=== PATIENT | female | born 1950 | race Caucasian/White ===

== ENCOUNTER → 2018-03-24 | Outpatient (CLI) | payer OTHER ==
[~2018-03-24] MED LIST: AMLO10TA2 PO; ASPI-516 CHEW; BENA20TA3 PO; IOHEXOL 350 MG/ML 10 ML VIAL (for RAD DIAG) IVCONTRAST ONE; LIPI20TA PO; PROP40TA3 PO; PROZ20CA11 PO
--- NOTE | 2018-03-24 14:20 | RADRPT ---
EXAM DATE: 03/24/2018 11:07 AM EDT AGE/SEX: 67 years / Female INDICATIONS: PREOP TAVR CLINICAL DATA: This is the patient's initial encounter. Patient reports that signs and symptoms have been present for 1 day and indicates a pain score of 0/10. MEDICAL/SURGICAL HISTORY: Cardiovascular disease. . RADIATION DOSE: 9.45 CTDI (mGy) COMPARISON: . TECHNIQUE: Volumetric scanning was performed using a multi-row detector CT scanner during bolus infu so of 97 ml Omnipaque 350 (iohexol) nonionic water-soluble contrast as a single exam dose. The da ta was post processed with a variety of visualization algorithms including full volume maximum intens ity projection, multi-planar sliding thin slab reformation, curved planar reformation, and surface re ndering techniques. Using automated exposure control and adjustment of the mA and/or kV according to patient size, radiation dose was kept as low as reasonably achievable to obtain optimal diagnostic q uality images. FINDINGS: CARDIAC: The coronary system is co- dominant. Normal vessels without calcification or stenosis. Th ere are no microcalcifications. There is no pericardial effusion AORTIC ROOT/VALVE: 3 cusps are evident with significant calcifications. The aortic root measures 3.4 cm. Mid thoracic aorta measures 3.5 cm with no calcifications. THORACIC AORTA: The thoracic aortic root is normal with normal branching of the great vessels. Ther e is no evidence of aneurysm or dissection. ABDOMINAL AORTA: The aorta is normal in caliber without aneurysm or dissection. The renal arteries are patent bilaterally. The proximal celiac and superior mesenteric arteries are patent and normal i n diameter. CELIAC ARTERY: Celiac artery origin is calcified with 20-30% stenosis of its origin.. SMA: Superior mesenteric artery origin is calcified but widely patent. RIGHT RENAL ARTERY: 2 equal sized renal arteries supply the right kidney. Both are patent. Both marc e from the aorta directly adjacent to one another.. LEFT RENAL ARTERY: There is a main left renal artery with small caliber accessory renal artery. Both are patent.. RIGHT COMMON ILIAC: No evidence of aneurysm, mural thrombus, dissection, or stenosis. Eccentric ca lcified plaque is noted. The common femoral measures 7 mm . LEFT COMMON ILIAC: Calcified plaque generates a 50% stenosis of the origin of the left common iliac a rtery. No mural thrombus, dissection, or aneurysm. At the stenotic segment and measures [address] THORAX: The heart is at the upper limits of normal in terms of size. No pericardial effusion. Pulmon agustina arteries are normal in caliber. No adenopathy. No infiltrate or effusion. ABDOMEN: 2 small cysts are seen involving the right lobe of the liver. The other intra-abdominal vis ceral structures are unremarkable. PELVIS: Unremarkable. CONCLUSION: 1. Calcified tricuspid aortic valve. 2. Hemodynamically significant stenosis involving the left common iliac artery origin. Electronically signed by: Dean Hawkins MD 03/24/2018 2:18 PM EDT
== END ==
LOC: HRAD 08:51
PROVIDERS: ATTEND Thoracic Surgery (Cardiothoracic Vascular Surgery)
DX: I35.0 Nonrheumatic aortic (valve) stenosis (principal); I50.33 Acute on chronic diastolic (congestive) heart failure; R01.1 Cardiac murmur, unspecified
CPT/HCPCS: 74174; Q9967

== ENCOUNTER 2018-03-28 05:41 | Inpatient (IN) | payer OTHER, MEDICARE ==
[2018-03-28] VITALS (11 sets, daily range): BP systolic 108–148; BP diastolic 40–70; PULSE 47–87; RESP 10–17; TEMP 97.8–98.6; O2SAT 92–99
[~2018-03-28] VITALS: Ht 160 cm; Wt 66.0 kg
[~2018-03-28 05:41] MED LIST changes: -AMLO10TA2 PO; -ASPI-516 CHEW; -BENA20TA3 PO; -LIPI20TA PO; -PROP40TA3 PO; -PROZ20CA11 PO
[2018-03-28] MEDS ORDERED: ASPI-516 CHEW (06:27)
[2018-03-28] MEDS ORDERED: AMLO10TA2 PO (06:27)
[2018-03-28] MEDS ORDERED: LIPI20TA PO (06:27)
[2018-03-28] MEDS ORDERED: PROZ20CA11 PO (06:27)
[2018-03-28] MEDS ORDERED: PROP40TA3 PO (06:27)
[2018-03-28] MEDS ORDERED: BENA20TA3 PO (06:27)
[2018-03-28] MEDS ORDERED: LACTATED RINGER'S 1000 ML IV PRN (06:30)
[2018-03-28] MEDS ORDERED: CHLORHEXIDINE GLUCONATE 2 % 1 PACK (2 CLOTHS) TOPICAL PRN (06:30)
[2018-03-28] MEDS ORDERED: SODIUM CHLORID 0.9% 500 ML IV PRN (06:30)
[2018-03-28] MEDS ORDERED: METOPROLOL TARTRATE 25 MG TAB PO PRN (06:30)
[2018-03-28] MEDS ORDERED: INSULIN HUMAN REGULAR 1,000 UNITS/10 ML VIAL SQ PRN (06:30)
[2018-03-28] MEDS ORDERED: POVIDONE IODINE 5% (ANTISEPSIS KIT) 4 APPLICATIONS EACH NARE PRN (06:30)
[2018-03-28] MEDS ORDERED: HEPARIN SODIUM - SQ 10,000 UNITS/ML VIAL ONE (06:34)
[2018-03-28] MEDS ORDERED: methylPREDNISolone SOD SUCC 125 MG/2 ML VIAL ONE (06:34)
[2018-03-28] MEDS ORDERED: VANCOMYCIN HCL 1000 MG VIAL ONE (06:34)
[2018-03-28] MEDS ORDERED: CUSTODIOL HTK IRR SOLN 2,000 ML ONE (06:59)
[2018-03-28] MEDS ORDERED: SODIUM BICARBONATE 8.4% INJ 50 MEQ/50 ML SYR ONE (07:00)
[2018-03-28] MEDS ORDERED: MANNITOL INJ 100 ML ONE (07:00)
[2018-03-28] MEDS ORDERED: ALBUMIN 25% INJ 50 ML IV ONE (07:00)
[2018-03-28] MEDS ORDERED: HEPARIN SODIUM - IV 10,000 UNITS/10 ML VIAL ONE (07:01)
[2018-03-28] MEDS ORDERED: ceFAZolin 2 GM PREMIX 50 ML ONE (07:10)
[2018-03-28] MEDS ORDERED: INSULIN REGULAR 100 UNITS in NS 100 ML IV PRN (08:00)
[2018-03-28] MEDS ORDERED: CEFAZOLIN 500 MG in NS IRR BTL 500 ML IRRIGATION SCH (08:30)
[2018-03-28] MEDS ORDERED: METOPROLOL TARTRATE 25 MG TAB PO SCH (08:30)
[2018-03-28] MEDS ORDERED: DEXTROSE 50% IN WATER 50 ML VIAL(D50) IV PUSH PRN ×2 (08:30→12:45)
[2018-03-28] MEDS ORDERED: SODIUM CHLORIDE 0.9% FLUSH 10 ML FLUSH IV FLUSH PRN ×3 (08:30→12:45)
[2018-03-28] MEDS ORDERED: ceFAZolin 2 GM PREMIX 50 ML IV SCH (08:30)
[2018-03-28] MEDS: BUPIVACAINE LIPOSO PF 1.3% INJ 20 ML, DEXAMETHASONE INJ 4 MG, MORPHINE INJ 8 MG in SODI... IRRIGATION SCH ×2 (09:43→12:43)
[2018-03-28] MEDS ORDERED: ePHEDrine/NS 25 MG/5 ML SYRINGE IV ONE (12:00)
[2018-03-28] MEDS ORDERED: LACTATED RINGER'S 1000 ML INJ 1,000 ML IV ONE (12:00)
[2018-03-28] MEDS ORDERED: CALCIUM CHLORIDE 10% SOLN 1 GRAM/10 ML SYR IV ONE (12:00)
[2018-03-28] MEDS ORDERED: SODIUM BICARBONATE 8.4% INJ 50 MEQ/50 ML SYR IV ONE (12:00)
[2018-03-28] MEDS ORDERED: HEPARIN SODIUM - SQ 10,000 UNITS/ML VIAL SQ ONE (12:00)
[2018-03-28] MEDS ORDERED: PHENYLEPHRINE HCL 10 MG/ML VIAL IV ONE (12:00)
[2018-03-28] MEDS ORDERED: PROTAMINE SULFATE 250 MG/25 ML VIAL IV ONE (12:00)
[2018-03-28] MEDS ORDERED: SODIUM CHLORIDE 0.9% INJ 100 ML IV ONE (12:00)
[2018-03-28] MEDS ORDERED: SODIUM CHLOR 0.9% 250 ML INJ 250 ML IV ONE (12:00)
[2018-03-28] MEDS ORDERED: PHENYLEPH/NS 1000 MCG/10 ML SYR IV ONE (12:00)
[2018-03-28] MEDS ORDERED: PROPOFOL 500 MG/50 ML BTL IV ONE (12:00)
[2018-03-28] MEDS ORDERED: AMINOCAPROIC ACID INJ 250 MG/ML 20 ML VIAL IV ONE (12:00)
[2018-03-28] MEDS ORDERED: MAGNESIUM SULFATE 1 GM/2 ML VIAL IV ONE (12:00)
[2018-03-28] MEDS ORDERED: DEXMEDETOMIDINE HCL 200 MCG/2 ML VIAL IV ONE (12:00)
[2018-03-28] MEDS ORDERED: NITROGLYCERIN 50 MG/DEXTROSE 5% SOLN 250 ML BTL IV ONE (12:00)
[2018-03-28] MEDS ORDERED: VECURONIUM BROMIDE 10 MG VIAL IV ONE (12:00)
[2018-03-28] MEDS ORDERED: SODIUM CHLORID 0.9% 500 ML INJ 500 ML IV ONE (12:00)
[2018-03-28] MEDS ORDERED: ceFAZolin INJ 1,000 MG VIAL ONE (12:20)
[2018-03-28] MEDS ORDERED: Post-op Orders (for Pharmacy) OTHER ONE (12:45)
[2018-03-28] MEDS ORDERED: ALBUMIN 5% INJ 250 ML IV PRN (12:45)
[2018-03-28] MEDS ORDERED: CALCIUM CHLORIDE 10% 1 GRAM/10 ML VIAL IV PUSH PRN (12:45)
[2018-03-28] MEDS ORDERED: INSULIN REGULAR (IV INFUSION) 100 UNITS in SODIUM CHLORIDE 0.9% INJ 99 ML IV PRN (12:45)
[2018-03-28] MEDS ORDERED: hydrALAZINE HCL 20 MG/ML VIAL IV PUSH PRN (12:45)
[2018-03-28] MEDS ORDERED: METOPROLOL TARTRATE 5 MG/5 ML VIAL IV PUSH PRN (12:45)
[2018-03-28] MEDS ORDERED: SODIUM BICARBONATE 8.4% SOLN 50 MEQ/50 ML VIAL IV PUSH PRN ×2 (12:45)
[2018-03-28] MEDS ORDERED: DEXMEDETOMIDINE INJ 200 MCG in SODIUM CHLORIDE 0.9% INJ 50 ML IV PRN (12:45)
[2018-03-28] MEDS ORDERED: ACETAMINOPHEN 325 MG TAB PO PRN (12:45)
[2018-03-28] MEDS ORDERED: ACETAMINOPHEN 650 MG SUPP RECTAL PRN (12:45)
[2018-03-28] MEDS ORDERED: POTASSIUM CHLOR 20 MEQ PREMIX 100 ML IV PRN ×4 (12:45→18:45)
[2018-03-28] MEDS ORDERED: MAGNESIUM SULFATE INJ 2 GM in SODIUM CHLORIDE 0.9% INJ 100 ML IV PRN ×4 (12:45)
[2018-03-28] MEDS ORDERED: POTASSIUM CHLORIDE 20 MEQ CONTROLLED RELEASE TAB PO PRN ×2 (12:45)
[2018-03-28] MEDS ORDERED: RESP: RACEPINEPHRINE 2.25% 0.5 ML NEB NEB PRN (12:45)
[2018-03-28] MEDS ORDERED: CALCIUM CHLORIDE INJ 1 GM in SODIUM CHLORIDE 0.9% INJ 100 ML IV PRN (13:00)
--- NOTE | 2018-03-28 13:03 | PD.OP ---
cc: Jennifer Bacon MD; Sourav Juarez MD Operative Report Date of Surgery: Mar 28, 2018 Preoperative Diagnosis: (1) Aortic stenosis (2) Diastolic heart failure (3) Bicuspid aortic valve Postoperative Diagnosis: same Procedure: Minimally invasive AVR with a 23 Intuity tissue valve Ultrasound guided right femoral access with arterial Perclose closure JEAN CLAUDE ORIF 3rd rib with a plate Anesthesia: Dr. El Surgeon: Jennifer Bacon Ophthalmic Aide(s): Kira Anand, RYAN Operation and Findings: The risks, benefits, complications, treatment options, and expected outcomes were discussed with the patient. The possibilities of reaction to medication, pulmonary aspiration, perforation of viscus, bleeding, recurrent infection, the need for additional procedures, failure to diagnose a condition, and creating a complication requiring transfusion or operation were discussed with the patient. The patient concurred with the proposed plan, giving informed consent. The site of surgery properly noted/marked. The patient was taken to Operating Room, identified as Theresa Mobley and the procedure verified as Minimally Invasive Aortic Valve Replacement. A Time Out was held and the above information confirmed. Standard monitoring lines and Gandhi catheter were placed. General anesthesia was induced. The patient was prepped and draped in a sterile fashion. . A 6 cm right anterior thoracotomy was performed and the 3rd rib was shingled. The right internal mammary artery and vein were ligated and divided. An Garrison retractor was placed followed by a small chest retractor. The pericardium was opened and a pericardial sling was created using interrupted 0 silk sutures. A small 1 cm incision was made at the 6th intercostal space and an LV vent and pericardial suction were placed through this access port. The aorta was dissected posteriorly for crossclamp placement. The left femoral artery and vein were percutaneously accessed using ultrasound guidance. The patient was heparinized for cardiopulmonary bypass. The left femoral artery was cannulated with a 15F [employer] arterial cannula. The left femoral vein was cannulated with a 21 [employer] cannula under JEAN CLAUDE guidance. Two Perclose devices were placed in the artery for later closure. Antegrade Custodiol cardioplegia was employed. The patient was placed on cardiopulmonary bypass. An aortic cross-clamp was applied and the heart was arrested using cold blood cardioplegia delivered through a 14F catheter. The aorta was opened above the sinotubular ridge and the aortic valve was exposed. On opening the aorta, the valve appeared bicuspid with a raphe between the right and left cusps. The noncoronary cusp was heavily calcified back to the annulus and down toward the underside of the anterior mitral leaflet. The valve was resected as well as all annular calcification, sized for a 23 mm Intuity tissue valve which was placed with 3, 2-0 Tycron sutures. The valve seated well and was balloon deployed. . The aorta was closed with running 4-0 Prolene suture. The patient systemically rewarmed. The heart was vigorously deaired with a clamp on. The clamp was removed, deairing continued. The patient was easily weaned from cardiopulmonary bypass. Decannulation was carried out without incident and both the femoral vessels were repaired with 5-0 prolene suture. Protamine was given. There was no adverse reaction. Intraoperative JEAN CLAUDE following the procedure showed a well-seated aortic valve with a mild perivalvular leak and preserved ventricular function. The PVL was noted to be in the area most involved with heavy calcification at the non-coronary cusp. Wound was checked for hemostasis which was obtained using electrocautery. The 3rd rib was reapproximated to the sternum and adjacent rib with a rigid plate and screws. The fascia and pectoralis were closed with 0 Vicryl. The subcutaneous tissue was closed using a running 3-0 Monocryl suture. The skin was closed with 4-0 Monocryl. The groin was closed in 2 layers. Sterile dressings were placed. At the end of the operation, all sponge, instruments, and needle counts were correct. The patient was transferred to the CVICU in stable condition. Jennifer Bacon MD Mar 28, 2018 13:03
[2018-03-28] MEDS ORDERED: fentaNYL CITRATE 250 MCG/5 ML AMP ONE ×2 (13:11)
[2018-03-28] MEDS ORDERED: MIDAZOLAM HCL 2 MG/2 ML VIAL ONE (13:11)
--- NOTE | 2018-03-28 13:31 | RADRPT ---
EXAM DATE: 03/28/2018 1:25 PM EDT AGE/SEX: 67 years / Female INDICATIONS: Post cardiac surgery, valve replacement CLINICAL DATA: This is the patient's initial encounter. Patient reports that signs and symptoms have been present for 1 day and indicates a pain score of Nonresponsive. MEDICAL/SURGICAL HISTORY: Cardiovascular disease. . valve replacement COMPARISON: No prior exams available for comparison. FINDINGS: There is an ET tube with tip approximately 2 cm above the marcial. Right IJ central line with tip in t he central SVC. NGT coursing beyond the GE junction. Right apical chest tube. Very subtle right-sided pneumothorax. Right apical pleural-parenchymal opacities. Left apical patchy airspace disease. Cardi omediastinal contours are within normal limits given technique. Bony thorax is intact. CONCLUSION: 1. Expected postoperative features of recent cardiac surgery with tubes and lines, as above. 2. Very trace right-sided pneumothorax with right apical chest tube in place. 3. Right apical pleural-parenchymal disease and patchy left apical airspace disease. Electronically signed by: Joe Segovia MD 03/28/2018 1:30 PM EDT
[2018-03-28] MEDS: ACETAMINOPHEN 1000 MG/100 ML 100 ML IV SCH ×3 (13:55→23:18)
[2018-03-28] MEDS: LACTATED RINGER'S 1000 ML INJ 500 ML IV PRN ×2 (13:56→14:12)
[2018-03-28] MEDS: POTASSIUM CHLOR 20 MEQ PREMIX 100 ML IV PRN ×2 (13:57→15:24)
[2018-03-28] MEDS: AMIODARONE 200 MG TAB PO SCH ×2 (14:00→22:00)
[2018-03-28] MEDS: RESP: ALBUTEROL 2.5 MG/IPRATROPIUM 0.5 MG NEB (PRN) NEB (14:29)
[2018-03-28] MEDS: CLEVIDIPINE INJ 50 ML IV PRN ×2 (14:40→21:42)
[2018-03-28] MEDS: RESP: ALBUTEROL 2.5 MG/IPRATROPIUM 0.5 MG NEB (SCH) NEB ×2 (15:27→22:35)
[2018-03-28] MEDS: KETOROLAC TROMETHAMINE 30 MG/ML (IVP) VIAL IV PUSH PRN (17:42)
[2018-03-28] MEDS: ONDANSETRON ODT 4 MG TAB SL PRN ×2 (18:48→23:17)
[2018-03-28] MEDS: MUPIROCIN 2% OINT 22 GM TUBE EACH NARE SCH (19:44)
[2018-03-28] MEDS: ATORVASTATIN 20 MG TAB PO SCH (21:00)
[2018-03-28] MEDS: SODIUM CHLORIDE 0.9% FLUSH 10 ML FLUSH IV FLUSH SCH (23:18)
[2018-03-29] VITALS (13 sets, daily range): BP systolic 110–158; BP diastolic 43–64; PULSE 52–77; RESP 15–22; TEMP 98.2–99.2; O2SAT 95–100
[2018-03-29] MEDS: RESP: ALBUTEROL 2.5 MG/IPRATROPIUM 0.5 MG NEB (SCH) NEB ×4 (03:53→20:11)
--- NOTE | 2018-03-29 04:08 | RADRPT ---
EXAM DATE: 03/29/2018 3:57 AM EDT AGE/SEX: 67 years / Female INDICATIONS: Short of breath. CLINICAL DATA: This is the patient's subsequent encounter. Patient reports that signs and symptoms h ave been present for 4 - 6 days and indicates a pain score of 0/10. MEDICAL/SURGICAL HISTORY: Cardiovascular disease. . valve replacement. COMPARISON: C, CHEST SINGLE AP, 03/28/2018. . FINDINGS: Right IJ central venous catheter in good position. Platelike atelectasis right midlung zone. Right ch est tube in good position with its tip near the apex. No residual pneumothorax. Mild atelectasis left midlung zone. Prosthetic heart valve are unchanged CONCLUSION: Much better aeration in the right upper lobe in the left upper lobe since the previous study Electronically signed by: Christoph Amezcua MD 03/29/2018 4:06 AM EDT
[2018-03-29 04:25] LABS: HEMATOCRIT 26.6 % (35.0-46.0); HEMOGLOBIN 9.1 GM/DL (11.6-15.3); MEAN CELL VOLUME 90.6 FL (80.0-100.0); MEAN CORPUSCULAR HEMOGLOBIN 30.9 PG (27.0-34.0); MEAN CORPUSCULAR HGB CONC 34.1 % (32.0-36.0); MEAN PLATELET VOLUME 8.4 FL (7.0-11.0); PLATELET COUNT 100 TH/MM3 (150-450); RED BLOOD COUNT 2.93 MIL/MM3 (4.00-5.30); RED CELL DISTRIBUTION WIDTH 13.3 % (11.6-17.2); WHITE BLOOD COUNT 13.8 TH/MM3 (4.0-11.0)
[2018-03-29 04:46] LABS: BICARBONATE 26.5 MEQ/L (21.0-32.0); CREATININE 0.8 MG/DL (0.50-1.00); MAGNESIUM 2.2 MG/DL (1.5-2.5)
[2018-03-29] MEDS: ONDANSETRON ODT 4 MG TAB SL PRN ×2 (05:16→12:11)
[2018-03-29] MEDS: KETOROLAC TROMETHAMINE 30 MG/ML (IVP) VIAL IV PUSH PRN ×2 (05:17→15:00)
[2018-03-29] MEDS: PANTOPRAZOLE SOD 40 MG DELAYED RELEASE TAB PO SCH (06:15)
[2018-03-29] MEDS: AMIODARONE 200 MG TAB PO SCH ×3 (06:15→21:32)
[2018-03-29] MEDS: ACETAMINOPHEN 1000 MG/100 ML 100 ML IV SCH (06:16)
[2018-03-29] MEDS: FLUoxetine HCL 20 MG CAP PO SCH (08:01)
[2018-03-29] MEDS: ASPIRIN 81 MG CHEW TAB PO SCH (08:01)
[2018-03-29] MEDS: MUPIROCIN 2% OINT 22 GM TUBE EACH NARE SCH ×2 (08:08→21:00)
--- NOTE | 2018-03-29 09:29 | PD.CAR.PN ---
CVT Progress Note CVT: POD #: 1 Subjective/Hospital Course: 03/29/18 Doing well. Hypertensive Objective: Vital Signs Date Time Temp Pulse Resp B/P (MAP) Pulse Ox O2 Delivery O2 Flow Rate FiO2 03/29/18 08:30 74 155/48 03/29/18 07:41 64 183/46 03/29/18 07:16 77 188/57 03/29/18 07:00 98.5 63 18 112/53 (72) 96 158/46 (83) 03/29/18 07:00 97 Nasal Cannula 4.00 03/29/18 07:00 60 03/29/18 03:16 97 Nasal Cannula 4.00 03/29/18 03:16 52 03/29/18 03:16 98.2 57 15 110/56 (74) 97 112/44 (66) 03/29/18 03:16 52 03/29/18 02:00 54 115/45 03/29/18 00:00 54 110/44 03/28/18 23:07 98.0 57 15 112/60 (77) 95 108/46 (66) 03/28/18 23:07 95 Nasal Cannula 4.00 03/28/18 23:07 57 03/28/18 23:07 57 03/28/18 21:42 55 137/47 03/28/18 20:12 54 03/28/18 20:12 99 Venturi Mask 35 03/28/18 20:12 97.8 54 17 125/70 (88) 99 143/51 (81) 03/28/18 19:45 52 143/51 03/28/18 19:30 97 Nasal Cannula 4.00 03/28/18 19:00 61 18 18:49 65 148/64 03/28/18 18:37 16 03/28/18 18:09 98.6 03/28/18 18:00 55 101/36 03/28/18 17:00 67 103/57 03/28/18 16:01 67 118/45 03/28/18 15:29 92 Venturi Mask 6.00 50 03/28/18 15:16 97 163/58 03/28/18 15:16 92 Nasal Cannula 6 50 03/28/18 15:00 95 Mechanical Ventilator 2.00 50 03/28/18 15:00 50 03/28/18 15:00 87 15 136/67 (90) 95 148/54 (85) 03/28/18 15:00 85 03/28/18 15:00 87 148/54 03/28/18 14:55 62 151/53 03/28/18 14:40 49 144/51 03/28/18 14:00 97.9 03/28/18 13:00 47 03/28/18 13:00 50 03/28/18 13:00 97.9 59 10 108/52 (70) 97 114/40 (64) 03/28/18 13:00 97.9 03/28/18 13:00 97 Mechanical Ventilator 2.00 50 03/28/18 12:59 97 50 Labs: Laboratory Tests Test 03/29/18 04:04 White Blood Count 13.8 TH/MM3 (4.0-11.0) Red Blood Count 2.93 MIL/MM3 (4.00-5.30) Hemoglobin 9.1 GM/DL (11.6-15.3) Hematocrit 26.6 % (35.0-46.0) Mean Corpuscular Volume 90.6 FL (80.0-100.0) Mean Corpuscular Hemoglobin 30.9 PG (27.0-34.0) Mean Corpuscular Hemoglobin Concent 34.1 % (32.0-36.0) Red Cell Distribution Width 13.3 % (11.6-17.2) Platelet Count 100 TH/MM3 (150-450) Mean Platelet Volume 8.4 FL (7.0-11.0) Blood Urea Nitrogen 18 MG/DL (7-18) Creatinine 0.80 MG/DL (0.50-1.00) Random Glucose 87 MG/DL (74-106) Calcium Level 8.0 MG/DL (8.5-10.1) Magnesium Level 2.2 MG/DL (1.5-2.5) Sodium Level 141 MEQ/L (136-145) Potassium Level 4.1 MEQ/L (3.5-5.1) Chloride Level 106 MEQ/L (98-107) Carbon Dioxide Level 26.5 MEQ/L (21.0-32.0) Anion Gap 9 MEQ/L (5-15) Estimat Glomerular Filtration Rate 71 ML/MIN (>89) Result Diagram: 03/29/18 0404 03/29/18 0404 Imaging: Last 24 hours Impressions Chest X-Ray 03/29/18 0500 Signed Impressions: CONCLUSION: Much better aeration in the right upper lobe in the left upper lobe since the p revious study Cardiovascular: RRR Telemetry: NSR Pulmonary: CTA GI/: NABS Incision: dry and intact CT: 180ml/12hrs Plan: Transfer to stepdown Lopressor Restart ACEI Remove pineda Advance diet continue chest tubes Encourage ambulation Jennifer Bacon MD Mar 29, 2018 09:28
[2018-03-29] MEDS ORDERED: BISACODYL 10 MG SUPP RECTAL PRN (09:30)
[2018-03-29] MEDS ORDERED: NON-FORMULARY DRUG (Benazepril-Hydrochlorothiazide 1 TAB) PO SCH (09:30)
[2018-03-29] MEDS ORDERED: GLUCAGON 1 MG/ML VIAL OTHER PRN (09:45)
[2018-03-29] MEDS ORDERED: DEXTROSE 50% IN WATER 50 ML VIAL(D50) IV PUSH PRN (09:45)
[2018-03-29] MEDS: INSULIN ASPART SUPPLEMENTAL SCALE SQ SCH ×4 (10:00→21:47)
--- NOTE | 2018-03-29 10:42 | RSPPFT ---
DATE OF PROCEDURE: 06/28/18 COMMENTS: Spirometry with FVC of 2.7 predicted 2.7, FEV1 of 1.9 predicted 2.2, FEV1/FVC ratio 72% predicted 82%. IMPRESSION: On the basis of the above, patient has flow values and flow volume loop appear to be within the predicted range.
[2018-03-29] MEDS: CLEVIDIPINE INJ 50 ML IV PRN (10:45)
[2018-03-29] MEDS: LISINOPRIL 20 MG TAB PO SCH (10:47)
[2018-03-29] MEDS: METOPROLOL TARTRATE 25 MG TAB PO SCH ×2 (10:47→21:33)
[2018-03-29] MEDS: HYDROCHLOROTHIAZIDE 25 MG TAB PO SCH (10:48)
[2018-03-29] MEDS: SODIUM CHLORIDE 0.9% FLUSH 10 ML FLUSH IV FLUSH SCH ×2 (10:49→21:00)
--- NOTE | 2018-03-29 13:52 | EKG ---
Date Performed: 03/29/2018 Time Performed: 05:12:34 PTAGE: 67 years EKG: Sinus bradycardia Extensive T wave changes may be due to myocardial ischemia Abnormal ECG NO PREVIOUS TRACING DOCTOR: Christoph Mathew Interpretating Date/Time 03/29/2018 13:49:38
[2018-03-29] MEDS: SENNOSIDES 8.6 MG TAB PO SCH (21:32)
[2018-03-29] MEDS: ATORVASTATIN 20 MG TAB PO SCH (21:32)
[2018-03-29] MEDS: DOCUSATE SODIUM 100 MG CAP PO SCH (21:32)
[2018-03-30] VITALS (29 sets, daily range): BP systolic 93–145; BP diastolic 52–65; PULSE 55–82; RESP 18–22; TEMP 98.2–99.3; O2SAT 94–98
[2018-03-30] MEDS: INSULIN ASPART SUPPLEMENTAL SCALE SQ SCH ×6 (02:00→20:16)
[2018-03-30] MEDS: oxyCODONE/ACETAMINOPHEN 5 MG/325 MG TAB PO PRN ×3 (02:54→17:51)
[2018-03-30] MEDS: RESP: ALBUTEROL 2.5 MG/IPRATROPIUM 0.5 MG NEB (SCH) NEB ×4 (04:00→22:23)
[2018-03-30 05:08] LABS: AUTOMATED NEUTROPHIL # 9.9 TH/MM3 (1.8-7.7); BASOPHIL % 0.1 % (0.0-2.0); HEMATOCRIT 24.9 % (35.0-46.0); HEMOGLOBIN 8.2 GM/DL (11.6-15.3); LYMPH % 10.6 % (9.0-44.0); LYMPHOCYTE # 1.3 TH/MM3 (1.0-4.8); MEAN CELL VOLUME 92.3 FL (80.0-100.0); MEAN CORPUSCULAR HEMOGLOBIN 30.3 PG (27.0-34.0); MEAN CORPUSCULAR HGB CONC 32.8 % (32.0-36.0); MEAN PLATELET VOLUME 8.7 FL (7.0-11.0); MONOCYTE # 1.1 TH/MM3 (0-0.9); NEUT % 80.3 % (16.0-70.0); PLATELET COUNT 82 TH/MM3 (150-450); RED CELL DISTRIBUTION WIDTH 13.6 % (11.6-17.2); WHITE BLOOD COUNT 12.3 TH/MM3 (4.0-11.0)
[2018-03-30 05:17] LABS: BICARBONATE 30.7 MEQ/L (21.0-32.0); CALCIUM 7.9 MG/DL (8.5-10.1); CREATININE 0.9 MG/DL (0.50-1.00); MAGNESIUM 2.2 MG/DL (1.5-2.5)
[2018-03-30] MEDS: PANTOPRAZOLE SOD 40 MG DELAYED RELEASE TAB PO SCH (05:52)
[2018-03-30] MEDS: AMIODARONE 200 MG TAB PO SCH ×2 (05:52→20:02)
[2018-03-30] MEDS: METOPROLOL TARTRATE 25 MG TAB PO SCH ×2 (07:59→20:02)
[2018-03-30] MEDS: MULTIVITAMINS/MINERALS THERAPEUTIC TAB PO SCH (07:59)
[2018-03-30] MEDS: DOCUSATE SODIUM 100 MG CAP PO SCH ×2 (07:59→20:01)
[2018-03-30] MEDS: LISINOPRIL 20 MG TAB PO SCH (07:59)
[2018-03-30] MEDS: POLYETHYLENE GLYCOL 17 GM PKG PO SCH (07:59)
[2018-03-30] MEDS: SODIUM CHLORIDE 0.9% FLUSH 10 ML FLUSH IV FLUSH SCH ×2 (08:00→20:02)
[2018-03-30] MEDS: ASPIRIN 81 MG CHEW TAB PO SCH ×2 (08:00→09:00)
[2018-03-30] MEDS: HYDROCHLOROTHIAZIDE 25 MG TAB PO SCH (08:00)
[2018-03-30] MEDS: MAGNESIUM HYDROXIDE SUSP 30 ML CUP PO SCH (08:01)
[2018-03-30] MEDS: FLUoxetine HCL 20 MG CAP PO SCH (09:00)
[2018-03-30 09:08] LABS: OVALOCYTES 1+ (NORMAL)
--- NOTE | 2018-03-30 12:45 | PD.CAR.PN ---
CVT Progress Note Subjective/Hospital Course: 03/29/18 Doing well. Hypertensive 03/30/18 Improved today. No c/o. Objective: Vital Signs Date Time Temp Pulse Resp B/P (MAP) Pulse Ox O2 Delivery O2 Flow Rate FiO2 03/30/18 11:30 98 Nasal Cannula 2.00 03/30/18 11:30 69 03/30/18 11:30 98.2 61 18 93/54 (67) 98 03/30/18 10:00 59 03/30/18 09:59 96 Nasal Cannula 2.00 03/30/18 09:00 78 03/30/18 08:15 69 03/30/18 08:15 94 Nasal Cannula 2.00 03/30/18 08:15 98.7 69 18 105/52 (69) 94 03/30/18 08:00 82 03/30/18 07:00 61 03/30/18 05:00 64 03/30/18 04:00 64 03/30/18 03:54 22 03/30/18 03:00 98.9 67 22 145/65 (91) 96 03/30/18 03:00 67 03/30/18 03:00 67 03/30/18 03:00 96 Nasal Cannula 2.00 03/30/18 02:00 65 03/30/18 01:00 65 03/30/18 00:00 69 03/29/18 23:00 68 03/29/18 23:00 98.7 68 22 116/56 (76) 96 03/29/18 23:00 68 03/29/18 23:00 96 Nasal Cannula 2.00 03/29/18 22:00 74 03/29/18 21:00 73 03/29/18 20:20 77 03/29/18 20:11 100 Nasal Cannula 3.00 03/29/18 20:00 77 03/29/18 19:00 96 Nasal Cannula 2.00 03/29/18 19:00 77 03/29/18 19:00 99.2 77 22 125/59 (81) 96 03/29/18 15:23 52 03/29/18 15:00 60 03/29/18 15:00 Nasal Cannula 2.00 03/29/18 15:00 98.6 64 18 131/57 (81) 97 Arterial Line 03/29/18 13:14 96 Nasal Cannula 2.00 03/29/18 12:58 71 Labs: Laboratory Tests Test 03/30/18 04:35 White Blood Count 12.3 TH/MM3 (4.0-11.0) Red Blood Count 2.70 MIL/MM3 (4.00-5.30) Hemoglobin 8.2 GM/DL (11.6-15.3) Hematocrit 24.9 % (35.0-46.0) Mean Corpuscular Volume 92.3 FL (80.0-100.0) Mean Corpuscular Hemoglobin 30.3 PG (27.0-34.0) Mean Corpuscular Hemoglobin Concent 32.8 % (32.0-36.0) Red Cell Distribution Width 13.6 % (11.6-17.2) Platelet Count 82 TH/MM3 (150-450) Mean Platelet Volume 8.7 FL (7.0-11.0) Neutrophils (%) (Auto) 80.3 % (16.0-70.0) Lymphocytes (%) (Auto) 10.6 % (9.0-44.0) Monocytes (%) (Auto) 9.0 % (0.0-8.0) Eosinophils (%) (Auto) 0.0 % (0.0-4.0) Basophils (%) (Auto) 0.1 % (0.0-2.0) Neutrophils # (Auto) 9.9 TH/MM3 (1.8-7.7) Lymphocytes # (Auto) 1.3 TH/MM3 (1.0-4.8) Monocytes # (Auto) 1.1 TH/MM3 (0-0.9) Eosinophils # (Auto) 0.0 TH/MM3 (0-0.4) Basophils # (Auto) 0.0 TH/MM3 (0-0.2) CBC Comment AUTO DIFF Differential Comment AUTO DIFF CONFIRMED Platelet Estimate LOW (NORMAL) Platelet Morphology Comment NORMAL (NORMAL) Ovalocytes 1+ (NORMAL) Blood Urea Nitrogen 21 MG/DL (7-18) Creatinine 0.90 MG/DL (0.50-1.00) Random Glucose 116 MG/DL (74-106) Calcium Level 7.9 MG/DL (8.5-10.1) Magnesium Level 2.2 MG/DL (1.5-2.5) Sodium Level 140 MEQ/L (136-145) Potassium Level 4.1 MEQ/L (3.5-5.1) Chloride Level 103 MEQ/L (98-107) Carbon Dioxide Level 30.7 MEQ/L (21.0-32.0) Anion Gap 6 MEQ/L (5-15) Estimat Glomerular Filtration Rate 62 ML/MIN (>89) Result Diagram: 03/30/18 0435 03/30/18434 Cardiovascular: RRR Telemetry: NSR Pulmonary: CTA GI/: NABS, NT Incision: dry and intact CT: 160ml/12hrs Plan: Chest tube to water seal Encourage ambulation Hold ACEI due to low BP May need some diuresis later today. Stim BM D/C planning Jennifer Bacon MD Mar 30, 2018 12:45
--- NOTE | 2018-03-30 12:46 | HHI.FF ---
Face to Face Verification Diagnosis: (1) Aortic stenosis (2) Diastolic heart failure (3) Bicuspid aortic valve Physical Therapy Order: Evaluate and Treat Occupational Therapy Order: Evaluate and Treat Home Health Nursing Order: Medical education Signs/symptoms of disease process Medication education-adverse effect Nursing assessment with vital signs I have seen patient Theresa Mobley on 03/30/18. My clinical findings support the need for the requested home health care services because: Deconditioned w/ increased weakness Limited ability to care for self I certify that my clinical findings support that this patient is homebound because: Post-op weakness Jennifer Bacon MD Mar 30, 2018 12:46
[2018-03-30] MEDS: ATORVASTATIN 20 MG TAB PO SCH (20:01)
[2018-03-30] MEDS: SENNOSIDES 8.6 MG TAB PO SCH (20:01)
[2018-03-30] MEDS: MUPIROCIN 2% OINT 22 GM TUBE EACH NARE SCH (20:18)
[2018-03-31] VITALS (26 sets, daily range): BP systolic 117–151; BP diastolic 58–67; PULSE 56–81; RESP 18–22; TEMP 98.4–99.4; O2SAT 93–99
[2018-03-31] MEDS: RESP: ALBUTEROL 2.5 MG/IPRATROPIUM 0.5 MG NEB (SCH) NEB ×3 (05:17→22:16)
[2018-03-31] MEDS: PANTOPRAZOLE SOD 40 MG DELAYED RELEASE TAB PO SCH (05:35)
[2018-03-31] MEDS: oxyCODONE/ACETAMINOPHEN 5 MG/325 MG TAB PO PRN ×2 (05:35→20:31)
[2018-03-31] MEDS: INSULIN ASPART SUPPLEMENTAL SCALE SQ SCH ×4 (08:30→20:29)
[2018-03-31] MEDS ORDERED: SOD PHOSPHATE/SOD BIPHOSPHATE (ADULT) ENEMA 133ML RECTAL PRN (09:00)
[2018-03-31] MEDS: MUPIROCIN 2% OINT 22 GM TUBE EACH NARE SCH ×2 (09:16→20:21)
[2018-03-31] MEDS: MAGNESIUM HYDROXIDE SUSP 30 ML CUP PO SCH (09:17)
[2018-03-31] MEDS: SODIUM CHLORIDE 0.9% FLUSH 10 ML FLUSH IV FLUSH SCH ×2 (09:17→20:26)
[2018-03-31] MEDS: FLUoxetine HCL 20 MG CAP PO SCH (09:24)
[2018-03-31] MEDS: ASPIRIN 81 MG CHEW TAB PO SCH (09:24)
[2018-03-31] MEDS: POLYETHYLENE GLYCOL 17 GM PKG PO SCH (09:24)
[2018-03-31] MEDS: AMIODARONE 200 MG TAB PO SCH ×2 (09:24→20:21)
[2018-03-31] MEDS: MULTIVITAMINS/MINERALS THERAPEUTIC TAB PO SCH (09:25)
[2018-03-31] MEDS: DOCUSATE SODIUM 100 MG CAP PO SCH ×2 (09:25→20:21)
[2018-03-31] MEDS: METOPROLOL TARTRATE 25 MG TAB PO SCH ×2 (09:25→20:21)
--- NOTE | 2018-03-31 11:34 | PD.CAR.PN ---
CVT Progress Note CVT: POD #: 3 Subjective/Hospital Course: 03/29/18 Doing well. Hypertensive 03/30/18 Improved today. No c/o. 03/31/18 Continues to drain from chest tube - 290ml/12 hrs. Otherwise doing well. Objective: Vital Signs Date Time Temp Pulse Resp B/P (MAP) Pulse Ox O2 Delivery O2 Flow Rate FiO2 03/31/18 10:00 64 03/31/18 09:19 99 Nasal Cannula 3.00 03/31/18 09:00 60 03/31/18 08:00 63 03/31/18 07:00 98.6 72 18 151/67 (95) 95 03/31/18 07:00 72 03/31/18 07:00 63 03/31/18 07:00 95 Nasal Cannula 3.00 03/31/18 06:07 20 03/31/18 06:00 62 03/31/18 05:00 67 03/31/18 04:00 70 03/31/18 04:00 98.4 69 20 125/58 (80) 99 03/31/18 03:00 61 03/31/18 03:00 98 Nasal Cannula 3.00 03/31/18 02:00 62 03/31/18 01:00 61 03/31/18 00:00 67 03/30/18 23:53 99.0 62 20 111/55 (73) 98 03/30/18 23:00 60 03/30/18 23:00 60 03/30/18 23:00 98 Nasal Cannula 3.00 03/30/18 22:40 97 Nasal Cannula 3.00 03/30/18 22:00 55 03/30/18 21:00 59 03/30/18 20:00 62 03/30/18 19:15 98 Nasal Cannula 3.00 03/30/18 19:15 65 03/30/18 19:15 99.3 65 20 104/53 (70) 98 03/30/18 19:00 65 03/30/18 18:01 66 03/30/18 17:01 63 03/30/18 16:01 63 03/30/18 15:01 62 03/30/18 15:01 98 Nasal Cannula 2.00 03/30/18 15:01 69 03/30/18 15:01 98.9 62 18 126/57 (80) 96 03/30/18 14:01 61 03/30/18 13:01 63 03/30/18 12:00 59 Result Diagram: 03/30/18 0435 03/30/18 0435 Cardiovascular: RRR Telemetry: SB Pulmonary: CTA GI/: NABS Incision: dry and intact CT: as above Plan: Diurese today Will have to leave chest tube one more day Wean O2 Encourage ambulation ready for discharge once tube can be removed Jennifer Bacon MD Mar 31, 2018 11:34
[2018-03-31] MEDS: FUROSEMIDE 40 MG/4 ML VIAL IV PUSH SCH ×2 (12:00→17:11)
[2018-03-31] MEDS: POTASSIUM CHLORIDE 10 MEQ CONTROLLED RELEASE TAB PO SCH ×2 (12:00→20:20)
[2018-03-31] MEDS: SENNOSIDES 8.6 MG TAB PO SCH (20:21)
[2018-03-31] MEDS: ATORVASTATIN 20 MG TAB PO SCH (20:21)
[2018-04-01] VITALS (29 sets, daily range): BP systolic 112–138; BP diastolic 57–74; PULSE 18–85; RESP 15–20; TEMP 97.6–98.6; O2SAT 92–98
[2018-04-01] MEDS: RESP: ALBUTEROL 2.5 MG/IPRATROPIUM 0.5 MG NEB (SCH) NEB ×2 (04:32→09:54)
[2018-04-01] MEDS: PANTOPRAZOLE SOD 40 MG DELAYED RELEASE TAB PO SCH (06:07)
[2018-04-01] MEDS: INSULIN ASPART SUPPLEMENTAL SCALE SQ SCH ×4 (07:41→21:00)
[2018-04-01] MEDS: AMIODARONE 200 MG TAB PO SCH ×2 (08:25→20:31)
[2018-04-01] MEDS: MULTIVITAMINS/MINERALS THERAPEUTIC TAB PO SCH (08:25)
[2018-04-01] MEDS: POTASSIUM CHLORIDE 10 MEQ CONTROLLED RELEASE TAB PO SCH ×2 (08:25→20:30)
[2018-04-01] MEDS: DOCUSATE SODIUM 100 MG CAP PO SCH ×2 (08:25→20:31)
[2018-04-01] MEDS: FUROSEMIDE 40 MG/4 ML VIAL IV PUSH SCH ×2 (08:27→17:28)
[2018-04-01] MEDS: ASPIRIN 81 MG CHEW TAB PO SCH (08:27)
[2018-04-01] MEDS: FLUoxetine HCL 20 MG CAP PO SCH (08:27)
[2018-04-01] MEDS: MAGNESIUM HYDROXIDE SUSP 30 ML CUP PO SCH (08:35)
[2018-04-01] MEDS: SODIUM CHLORIDE 0.9% FLUSH 10 ML FLUSH IV FLUSH SCH ×2 (08:35→20:31)
[2018-04-01] MEDS: METOPROLOL TARTRATE 25 MG TAB PO SCH ×2 (08:35→20:31)
[2018-04-01] MEDS: POLYETHYLENE GLYCOL 17 GM PKG PO SCH (08:35)
--- NOTE | 2018-04-01 10:39 | PD.CAR.PN ---
CVT Progress Note Subjective/Hospital Course: 03/29/18 Doing well. Hypertensive 03/30/18 Improved today. No c/o. 03/31/18 Continues to drain from chest tube - 290ml/12 hrs. Otherwise doing well. 04/01 CT removed Likely D/C home in am Objective: Vital Signs Date Time Temp Pulse Resp B/P (MAP) Pulse Ox O2 Delivery O2 Flow Rate FiO2 04/01/18 10:00 63 04/01/18 09:54 98 21 04/01/18 09:00 69 04/01/18 08:00 67 04/01/18 07:05 98.3 70 18 138/62 (87) 95 04/01/18 07:05 95 Room Air 04/01/18 07:00 70 04/01/18 07:00 66 04/01/18 06:00 68 04/01/18 05:00 66 04/01/18 04:00 65 04/01/18 03:00 98.6 62 20 117/58 (77) 92 04/01/18 03:00 59 04/01/18 03:00 92 Room Air 04/01/18 03:00 75 04/01/18 02:00 61 04/01/18 01:00 63 04/01/18 00:00 64 03/31/18 23:00 72 03/31/18 23:00 73 03/31/18 23:00 93 Room Air 03/31/18 23:00 98.7 72 20 117/58 (77) 93 03/31/18 22:18 96 03/31/18 22:00 69 03/31/18 21:25 20 03/31/18 21:00 75 03/31/18 20:00 78 03/31/18 19:47 97 Room Air 03/31/18 19:47 79 03/31/18 19:00 99.4 78 20 129/58 (81) 97 03/31/18 19:00 79 03/31/18 18:00 79 03/31/18 17:00 81 03/31/18 16:00 78 03/31/18 15:00 77 03/31/18 15:00 97 Room Air 03/31/18 15:00 78 03/31/18 15:00 98.4 77 20 126/58 (80) 97 03/31/18 14:00 70 03/31/18 13:00 56 03/31/18 12:00 59 03/31/18 11:00 98.7 63 22 149/66 (93) 98 03/31/18 11:00 98 Nasal Cannula 1.00 03/31/18 11:00 64 03/31/18 11:00 65 Result Diagram: 03/30/18 0435 03/30/18 0435 Laina Goodman MD Apr 01, 2018 10:39
[2018-04-01] MEDS: guaiFENesin E.R. 600 MG TAB PO SCH ×2 (11:56→20:34)
[2018-04-01] MEDS: LORATADINE 10 MG TAB PO SCH (11:56)
[2018-04-01] MEDS: ATORVASTATIN 20 MG TAB PO SCH (20:30)
[2018-04-01] MEDS: SENNOSIDES 8.6 MG TAB PO SCH (20:31)
[2018-04-01] MEDS: RESP: ALBUTEROL 2.5 MG/IPRATROPIUM 0.5 MG NEB (PRN) NEB (20:49)
[2018-04-01] MEDS ORDERED: FLUoxetine HCL 20 MG CAP PO SCH (21:00)
[2018-04-01] MEDS: oxyCODONE/ACETAMINOPHEN 5 MG/325 MG TAB PO PRN (21:23)
[2018-04-02] VITALS (15 sets, daily range): BP systolic 123–138; BP diastolic 59–63; PULSE 62–88; RESP 15–18; TEMP 98.1–99.7; O2SAT 96–98
[2018-04-02] MEDS: INSULIN ASPART SUPPLEMENTAL SCALE SQ SCH (08:00)
[2018-04-02] MEDS: FUROSEMIDE 40 MG/4 ML VIAL IV PUSH SCH (08:05)
[2018-04-02] MEDS: DOCUSATE SODIUM 100 MG CAP PO SCH (08:05)
[2018-04-02] MEDS: AMIODARONE 200 MG TAB PO SCH (08:06)
[2018-04-02] MEDS: POTASSIUM CHLORIDE 10 MEQ CONTROLLED RELEASE TAB PO SCH (08:06)
[2018-04-02] MEDS: MULTIVITAMINS/MINERALS THERAPEUTIC TAB PO SCH (08:06)
[2018-04-02] MEDS: METOPROLOL TARTRATE 25 MG TAB PO SCH (08:06)
[2018-04-02] MEDS: LORATADINE 10 MG TAB PO SCH (08:07)
[2018-04-02] MEDS: ASPIRIN 81 MG CHEW TAB PO SCH (08:07)
[2018-04-02] MEDS: PANTOPRAZOLE SOD 40 MG DELAYED RELEASE TAB PO SCH (08:07)
[2018-04-02] MEDS: SODIUM CHLORIDE 0.9% FLUSH 10 ML FLUSH IV FLUSH SCH (08:08)
[2018-04-02] MEDS: MAGNESIUM HYDROXIDE SUSP 30 ML CUP PO SCH (08:08)
[2018-04-02] MEDS: POLYETHYLENE GLYCOL 17 GM PKG PO SCH (08:09)
[2018-04-02] MEDS ORDERED: FLUoxetine HCL 20 MG CAP PO SCH (09:00)
--- NOTE | 2018-04-02 09:33 | HHI.DS ---
Discharge Summary Admission Date Mar 28, 2018 at 05:41 Discharge Date: Apr 02, 2018 Admitting Diagnosis Procedures Minimally invasive AVR with a 23 Intuity tissue valve Ultrasound guided right femoral access with arterial Perclose closure JEAN CLAUDE ORIF 3rd rib with a plate CBC/BMP: 03/30/18 0435 03/30/18 0435 Hospital Course 03/29/18 Doing well. Hypertensive 03/30/18 Improved today. No c/o. 03/31/18 Continues to drain from chest tube - 290ml/12 hrs. Otherwise doing well. 04/01 CT removed Likely D/C home in am 04/02 D/C Home Pt Condition on Discharge: Good Discharge Disposition: Disch w/ Home Health Serv Discharge Instructions DIET: Follow Instructions for: As Tolerated, No Restrictions Activities you can perform: Full Weight Bearing, Shower Only-No Bath Activities to avoid: Lifting/Bending, Bathing, Driving Follow up Referrals: Cardiology - [address] Karina Moura PCP Follow-up - 2 Weeks with CARISSA Gracia [address] [place], [place] Surgical - 2 Weeks with Nelly Burger New Medications: Amiodarone (Amiodarone) 200 Mg Tab 200 MG PO BID for z for 14 Days, #28 TAB Docusate Sodium (Dok) 100 Mg Cap 100 MG PO BID for Constipation for 14 Days, #28 CAP Oxycodone HCl/Acetaminophen (Oxycodone-Acetaminophen 5-325) 5 Mg-325 Mg Tablet 1 TAB PO Q3H PRN for PAIN SCALE 1 TO 5 for 7 Days, #56 TAB Continued Medications: Amlodipine (Amlodipine) 10 Mg Tab 10 MG PO DAILY for Blood Pressure Management, #30 TAB 0 Refills Aspirin (Aspirin) 81 Mg Chew 81 MG CHEW DAILY, TAB 0 Refills Atorvastatin (Lipitor) 20 Mg Tab 20 MG PO HS for Cholesterol Management, #30 TAB 0 Refills Benazepril-Hydrochlorothiazide (Benazepril-Hydrochlorothiazide) 20-12.5 Mg Tab 1 TAB PO BID for Blood Pressure Management, #30 TAB 0 Refills Fluoxetine (Prozac) 20 Mg Cap 20 MG PO DAILY, #30 CAP 0 Refills Propranolol (Propranolol) 40 Mg Tab 40 MG PO HS, #60 TAB 0 Refills Laina Goodman MD Apr 02, 2018 09:33
[2018-04-02] MEDS ORDERED: AMIO200T PO (09:36)
[2018-04-02] MEDS ORDERED: OXYC1TAB63 PO (09:36)
[2018-04-02] MEDS ORDERED: DOCU1CAP39 PO (09:36)
[2018-04-02] MEDS: ONDANSETRON ODT 4 MG TAB SL PRN (12:00)
== END 2018-04-02 12:17 | disposition home health service (06) | DRG 266 ==
LOC: HSDI 05:41 → HCVI 12:59 → HCPC 03-29 18:11
PROVIDERS: ADMIT Thoracic Surgery (Cardiothoracic Vascular Surgery); ATTEND Thoracic Surgery (Cardiothoracic Vascular Surgery)
PROC: B246ZZ4 Ultrasonography of Right and Left Heart, Transesophageal (ICD-10-PCS; 2018-03-28)
PROC: 02RF38Z Replacement of Aortic Valve with Zooplastic Tissue, Percutaneous Approach (ICD-10-PCS; principal; 2018-03-28 07:28)
PROC: 5A1221Z Performance of Cardiac Output, Continuous (ICD-10-PCS; 2018-03-28 07:28)
DX: I35.0 Nonrheumatic aortic (valve) stenosis (principal); I50.33 Acute on chronic diastolic (congestive) heart failure; I11.0 Hypertensive heart disease with heart failure; R01.1 Cardiac murmur, unspecified; F41.9 Anxiety disorder, unspecified; F32.9 Major depressive disorder, single episode, unspecified; E78.5 Hyperlipidemia, unspecified; K21.9 Gastro-esophageal reflux disease without esophagitis; Z79.82 Long term (current) use of aspirin; Z00.6 Encounter for examination for normal comparison and control in clinical research program
CPT/HCPCS: 36430; 71045; 76937; 80048; 82948; 83735; 85025; 85027; 86850; 86900; 86901; 86920; 87640; 87641; 88305; 88311; 93005; 93318; 94002; 94150; 94640; 94664; 94667; 94668; C1713; C9248; C9290; J0131; J0360; J0690; J1100; J1644; J1815; J1817; J1885; J1940; J2150; J2250; J2270; J2370; J2720; J2930; J3010; J3370; J3475; J3480; J7040; J7050; J7120; P9016; P9045; P9047; Q9967